=== PATIENT | male | born 1955 | race Caucasian/White ===

== ENCOUNTER → 2016-08-26 | Outpatient (CLI) | payer OTHER ==
[2016-05-01 15:22] VITALS: BP 131/78
[~2016-08-26] MED LIST: ASPI81TA44 PO; CRESTOR20 MG PO; EMPA1TAB PO; ESCI20TA PO; GLIM4TAB2 PO; LISI-334 PO; METF500T4 PO
--- NOTE | 2016-08-26 09:12 | CARD ---
APPROVED REPORT EXAM: Two-dimensional and M-mode echocardiogram with Doppler and color Doppler. Other Information Quality : Average Rhythm : NSR INDICATION Cardiomyopathy 2D DIMENSIONS RVDd3.5 (2.9-3.5cm)Left Atrium(2D)4.5 (1.6-4.0cm) IVSd1.2 (0.7-1.1cm)Aortic Root(2D)3.3 (2.0-3.7cm) LVDd5.0 (3.9-5.9cm)LVOT Diameter2.3 (1.8-2.4cm) PWd1.2 (0.7-1.1cm)LVDs3.8 (2.5-4.0cm) FS (%) 34.0 %SV55.9 ml LVEF(%)57.6 (>50%) Aortic Valve AoV Peak Chris.162.3cm/sAoV VTI31.4cm AO Peak GR.10.5mmHgLVOT Peak Chris.102.9cm/s LVOT VTI 20.20cmAO Mean GR.7mmHg BELGICA (VMAX)2.67pl3DRN (VTI)2.63cm2 Mitral Valve MV E Vgykerdm66.7cm/sMV DECEL [id number] MV A Uyngczua43.4cm/sMV E Mean Gr.2mmHg MV GML92iqW/A Ratio0.8 MV A Aaerdhlk277miQCO (PHT)2.35cm2 TDI E/Lateral E'7.1E/Medial E'9.5 Pulmonary Valve PV Peak Dixnitxg24.3cm/sPV Peak Grad.4mmHg RVOT VTI19.1cm Tricuspid Valve TR P. Esleieom475lj/sRAP EOTAUNCI3dmOh TR Peak Gr.59ngScIVMI46ivNv Pulmonary Vein S1 Ctxyqrhk88.1cm/sD2 Sarbilrz09.6cm/s LEFT VENTRICLE The left ventricle is normal size. There is borderline concentric left ventricular hypertrophy. Left ventricle systolic function is normal. The Ejection Fraction is 55-60%. There is normal LV segmental wall motion. Septal motion suggestive of post-operative state. Tissue Doppler imaging reveals mild le ft ventricular diastolic dysfunction. RIGHT VENTRICLE The right ventricle is normal size. The right ventricular systolic function is normal. ATRIA The left atrium is mildly dilated. The right atrium size is normal. The interatrial septum is intact with no evidence for an atrial septal defect or patent foramen ovale as noted on 2-D or Doppler imagi ng. AORTIC VALVE The aortic valve is mildly sclerotic. Doppler and Color Flow revealed mild aortic regurgitation. Ther e is no significant aortic valvular stenosis. MITRAL VALVE Mitral annular calcification is borderline. The mitral valve leaflets are thickened. There is no mitr al valve stenosis. Doppler and Color Flow revealed mild mitral regurgitation. TRICUSPID VALVE The tricuspid valve is normal in structure and function. Doppler and Color Flow revealed mild tricusp id regurgitation. The PA pressure was estimated at 33 mmHg. There is no tricuspid valve stenosis. PULMONIC VALVE The pulmonic valve is not well visualized. Doppler and Color Flow revealed no pulmonic valvular regur gitation. There is no pulmonic valvular stenosis. GREAT VESSELS The aortic root is normal in size. Normal pulmonary venous flow (Doppler). The IVC is normal in size and collapses >50% with inspiration. PERICARDIAL EFFUSION There is no evidence of significant pericardial effusion. Critical Notification Critical Value: No <Conclusion> Left ventricle systolic function is normal. The Ejection Fraction is 55-60%. There is normal LV segmental wall motion. Septal motion suggestive of post-operative state. Doppler and Color Flow revealed mild aortic regurgitation.
== END | disposition home or self-care (01) ==
LOC: ECHO 08:05
PROVIDERS: ATTEND Internal Medicine Cardiovascular Disease
DX: I25.5 Ischemic cardiomyopathy (principal); I51.7 Cardiomegaly; I35.1 Nonrheumatic aortic (valve) insufficiency; I34.0 Nonrheumatic mitral (valve) insufficiency
CPT/HCPCS: 93306

== ENCOUNTER → 2016-11-09 | Outpatient (CLI) | payer OTHER ==
[2016-05-01 15:22] VITALS: BP 131/78
[~2016-11-09] MED LIST changes: +ZOLPIDEM 5 MG TABLET. PO ONE
--- NOTE | 2016-11-10 13:24 | SLEEP ---
DATE OF STUDY: 11/09/2016 ATTENDING PHYSICIAN: Dr. Paulo Bella. The patient is a 61-year-old who weighs 275 pounds with a BMI of 37. The patient's [place] score was 9. The patient had a sleep study 20 plus years ago and was positive for LESLEE. She was on 10 cm of water at home. Another split night study was requested by primary care physician. During the night study, the patient spent 426 minutes in bed and slept for 304 minutes with a sleep efficiency of 71%. Sleep latency was 66 minutes with an absent REM sleep. Overall, sleep architecture showed increased stage I and stage II sleep, normal slow wave, and absent REM sleep. During the initial diagnostic portion of the study, the patient slept for 183 minutes. During this time, there were no obstructive mixed or central apneas. There were 112 hypopneas. The patient's apnea-hypopnea index was 37 per hour. Supine index was 50 per hour. REM sleep was not seen. EKG monitoring revealed sinus rhythm. Average heart rate was 89 beats per minute. No sustained arrhythmias were observed. Nocturnal oximetry study revealed a mean oxygen saturation of 96% with the lowest of 84%. 10% of time oxygen saturation remained between 80% and 89%. PLMS were seen at index of 13 per hour, and 1 per hour caused EEG arousals. The patient met the criteria for CPAP initiation. It was started at 5 cm of water and titrated up to 11 cm of water. However, best results were seen at a CPAP pressure of 9 cm of water. The patient had 75 minutes of sleep. Supine sleep was seen throughout. No REM sleep was observed. AHI was 0 per hour, and oxygen saturation remained above 91%. The patient used small size nasal pillows. IMPRESSION: 1. Severe sleep apnea-hypopnea syndrome with an apnea-hypopnea index of 37 per hour. 2. Nocturnal hypoxia secondary to obstructive sleep apnea, but resolved with CPAP. 3. Mild periodic limb movements during sleep without any significant EEG arousals. This does not need to be treated. RECOMMENDATIONS: 1. CPAP at 9 cm of water completely eliminated the patient's sleep apnea and should be used on a nightly basis. 2. Follow up in 4-6 weeks to assess compliance with CPAP and to document clinical improvement. 3. Weight loss is strongly advised. 4. Avoid [employer] depressants. 5. Caution regarding driving until symptoms of sleep apnea resolve with the use of CPAP. DARLEEN MORIN MD DR: PAO/evette JOB#: [id number] / [id number] Dr. Victor M Antunez
== END | disposition home or self-care (01) ==
LOC: SLPLAB 18:28
PROVIDERS: ATTEND Family Medicine
DX: G47.33 Obstructive sleep apnea (adult) (pediatric) (principal)
CPT/HCPCS: 95810

== ENCOUNTER → 2017-03-26 | Outpatient (CLI) | payer OTHER ==
[2016-05-01 15:22] VITALS: BP 131/78
[~2017-03-26] MED LIST changes: -ESCI20TA PO; +ESCITALOPRAM OX20 MG PO; +HYDR-971 PO; -ZOLPIDEM 5 MG TABLET. PO ONE
--- NOTE | 2017-03-26 11:33 | RAD ---
Left ankle, 03/26/2017: History: Fall, pain There is a nondisplaced fracture of the distal fibula. No other fracture or dislocation is identified. Surgical clips are present in the soft tissues of the lower leg medially. There is moderate diffuse soft tissue swelling about the ankle. IMPRESSION: Nondisplaced distal fibular fracture. Left foot, 3 views, 03/26/2017: No additional fracture or dislocation is identified. There is mild spurring at the midfoot level. There is a moderate sized inferior calcaneal spur. IMPRESSION: No additional fracture is detected.
[2017-03-26 12:21] LABS: CHOLESTEROL/HDL RATIO 8.5
== END | disposition home or self-care (01) ==
LOC: RAD 10:53
PROVIDERS: ATTEND Internal Medicine Cardiovascular Disease
DX: S82.839A Other fracture of upper and lower end of unspecified fibula, initial encounter for closed fracture (principal)
CPT/HCPCS: 36415; 73610; 73630; 80061

== ENCOUNTER → 2017-09-13 | Outpatient (CLI) | payer OTHER ==
[2017-09-13 10:33] LABS: ANION GAP 12 (6-14); BLOOD UREA NITROGEN 29 mg/dL (8-26); CALCIUM 8.4 mg/dL (8.5-10.1); CARBON DIOXIDE 24 mmol/L (21-32); CHLORIDE 104 mmol/L (98-107); CREATININE 1.1 mg/dL (0.7-1.3); GFR 67.6; GLUCOSE 190 mg/dL (70-99); POTASSIUM 4.7 mmol/L (3.5-5.1); SODIUM 140 mmol/L (136-145)
== END | disposition home or self-care (01) ==
LOC: ECHO 09:31
DX: I25.10 Atherosclerotic heart disease of native coronary artery without angina pectoris (principal); I35.1 Nonrheumatic aortic (valve) insufficiency; I11.0 Hypertensive heart disease with heart failure; E11.9 Type 2 diabetes mellitus without complications; I50.9 Heart failure, unspecified; E78.5 Hyperlipidemia, unspecified; Z95.1 Presence of aortocoronary bypass graft
CPT/HCPCS: 36415; 80048; 83735; 93306

== ENCOUNTER → 2018-01-12 | Day surgery (SDC) | payer OTHER ==
[~2018-01-12] MED LIST changes: -ASPI81TA44 PO; +ASPI81TA59 PO; +FURO40TA4 PO; +INSU100I13 SQ; +IV RINGERS,LACTATED 1000ML 1,000 ML IV SCH; +LIDOCAINE 1% PF 2 ML VIAL. ID PRN; +LIDOCAINE 2% PF Vial for OR 5 ML VIAL. ONE; -METF500T4 PO; +METF500T5 PO; +MORPHINE SULFATE 2 MG/ML VIAL. IV PRN; +ONDANSETRON PF 4 MG/2 ML VIAL. IV PRN; +PROCHLORPERAZINE 10 MG/2 ML VIAL. IV PRN; +PROPOFOL 40 ML IV ONE; +SACU1TAB7 PO; +SIMV10TA3 PO; +fentaNYL PF VIAL 100 MCG/2 ML VIAL IV PRN
[2018-01-12 09:57] VITALS: BP 131/76
== END | disposition home or self-care (01) ==
LOC: ENDOS 07:54
PROVIDERS: ATTEND Internal Medicine Gastroenterology
DX: Z12.11 Encounter for screening for malignant neoplasm of colon (principal); K64.0 First degree hemorrhoids; E11.9 Type 2 diabetes mellitus without complications; I25.2 Old myocardial infarction; K21.9 Gastro-esophageal reflux disease without esophagitis; I25.10 Atherosclerotic heart disease of native coronary artery without angina pectoris; E78.00 Pure hypercholesterolemia, unspecified; I11.9 Hypertensive heart disease without heart failure; F32.9 Major depressive disorder, single episode, unspecified; F41.9 Anxiety disorder, unspecified; G47.30 Sleep apnea, unspecified; Z79.82 Long term (current) use of aspirin; Z86.010 Personal history of colon polyps; Z79.84 Long term (current) use of oral hypoglycemic drugs; Z79.899 Other long term (current) drug therapy; Z95.1 Presence of aortocoronary bypass graft; Z90.49 Acquired absence of other specified parts of digestive tract; Z98.890 Other specified postprocedural states; M19.90 Unspecified osteoarthritis, unspecified site; Z72.89 Other problems related to lifestyle; Z87.891 Personal history of nicotine dependence; Z80.3 Family history of malignant neoplasm of breast; Z83.3 Family history of diabetes mellitus; Z82.49 Family history of ischemic heart disease and other diseases of the circulatory system
CPT/HCPCS: 45378; 82962; J2001; J2704